=== PATIENT | male | born 1960 | race African-American/Black ===

== ENCOUNTER 2020-12-24 12:18 | Inpatient (IN) ==
[2020-12-24] MEDS ORDERED: ALBUTEROL 2.5 MG/3 ML NEB RESP TX PRN (16:59)
[2020-12-24] MEDS ORDERED: ONDANSETRON 4 MG/2 ML VIAL IV PRN (16:59)
[2020-12-24 17:31] LABS: ABG Base Excess -5.5 MMOL/L (-2.5-2.5); ABG HCO3 17.8 MMOL/L (20-26); ABG Oxygen Saturation 88.3 % (95-100); ABG PCO2 27.5 MM HG (35-48); ABG PH 7.428 (7.35-7.45); ABG PO2 49.7 MM HG (80-95); ABG TCO2 18.6 MMOL/L (23-27)
[2020-12-24] MEDS ORDERED: DIAZEPAM 5 MG TABLET PO PRN (17:43)
[2020-12-24 18:09] LABS: Basophils % 0.2 % (0.0-0.8); Eosinophils # 0.1 10*3/uL (0.0-0.87); Eosinophils % 0.3 % (0.00-10.9); Hemoglobin 10.7 GM/DL (14.0-18.0); Immature Granulocytes % 1.1 %; Immature Granulocytes Absolute 0.23 #; Lymphocytes # 1.7 10*3/uL (1.4-4.0); Lymphocytes % 8.4 % (21.2-54.2); Mean Corpuscular HGB Conc 31.5 GM/DL (32-36); Mean Corpuscular Volume 91.2 FL (87-102); Mean Platelet Volume 9.9 FL (9.6-12.0); Platelet Count 314 T/CUMM (130-400); Red Blood Count 3.73 MC/CUMM (3.8-5.5); Red Cell Distribution Width 14.9 % (9.3-17.3); White Blood Count 20.6 T/CUMM (4-12)
[2020-12-24] MEDS: PANTOPRAZOLE 40 MG VIAL IV SCH (18:11)
[2020-12-24] MEDS: HEPARIN DRIP 25,000 UNITS/500 ML PREMIX IV SCH (18:11)
[2020-12-24 18:24] LABS: PT Patient Result 11.4 SECS (10.5-12.0); Partial Thromboplastin Time 34.2 SECS (23.8-32.1)
[2020-12-24 18:26] LABS: Calcium 8.4 MG/DL (8.5-10.1); Osmolality,Calculated 272.4 MOS/KG (273-304); Potassium 4.3 MMOL/L (3.5-5.1)
[2020-12-24 19:36] LABS: Band Neutrophils 1 % (0-10); Lymphocytes 8 % (20-55); Segmented Neutrophils 85 % (50-85); Total Cells Counted 100
[2020-12-24 19:37] LABS: Acanthocytes Few; Spherocytes Slight
[2020-12-24] MEDS: INSULIN LISPRO 100 UNIT/ML SUBCUT SCH (21:18)
[2020-12-24] MEDS: CLARITHROMYCIN 500 MG TABLET PO SCH (21:19)
[2020-12-24] MEDS: AMOXICILLIN 500 MG CAPSULE PO SCH (21:19)
[2020-12-24] MEDS ORDERED: MORPHINE 2 MG/1 ML SYRINGE IV PRN (22:41)
[2020-12-24] MEDS ORDERED: MORPHINE 2 MG/1 ML SYRINGE ONE (22:43)
[2020-12-24] MEDS: ACETAMINOPHEN 500 MG TABLET PO PRN (23:08)
[2020-12-25 01:32] LABS: PT Patient Result 11.6 SECS (10.5-12.0); Partial Thromboplastin Time 56.7 SECS (23.8-32.1)
[2020-12-25 04:36] LABS: Basophils # 0.1 10*3/uL (0.0-0.2); Basophils % 0.2 % (0.0-0.8); Eosinophils % 0.2 % (0.00-10.9); Hematocrit 27.6 VOL% (42.0-52.0); Hemoglobin 9.4 GM/DL (14.0-18.0); Immature Granulocytes % 1.3 %; Immature Granulocytes Absolute 0.27 #; Lymphocytes # 1.6 10*3/uL (1.4-4.0); Lymphocytes % 7.6 % (21.2-54.2); Mean Corpuscular HGB Conc 34.1 GM/DL (32-36); Mean Corpuscular Volume 85.7 FL (87-102); Mean Platelet Volume 9.9 FL (9.6-12.0); Neutrophils % 80.7 % (38.7-73.9); Platelet Count 305 T/CUMM (130-400); Red Blood Count 3.22 MC/CUMM (3.8-5.5); Red Cell Distribution Width 14.6 % (9.3-17.3); White Blood Count 20.7 T/CUMM (4-12)
[2020-12-25 04:37] LABS: ABG Base Excess -3.7 MMOL/L (-2.5-2.5); ABG HCO3 21.2 MMOL/L (20-26); ABG Oxygen Saturation 93.1 % (95-100); ABG PCO2 32.2 MM HG (35-48); ABG PH 7.407 (7.35-7.45); ABG PO2 63.2 MM HG (80-95); ABG TCO2 18.6 MMOL/L (23-27)
[2020-12-25 04:46] LABS: INR 1.1; PT Patient Result 11.8 SECS (10.5-12.0); Partial Thromboplastin Time 64.8 SECS (23.8-32.1)
[2020-12-25 05:04] LABS: Lymphocytes 5 % (20-55); Platelet Estimate Adequate; Segmented Neutrophils 80 % (50-85); Total Cells Counted 100
[2020-12-25 05:05] LABS: Hypochromasia 1+; Microcytosis Slight
[2020-12-25 05:08] LABS: Calcium 7.8 MG/DL (8.5-10.1); Osmolality,Calculated 267.2 MOS/KG (273-304); Potassium 3.9 MMOL/L (3.5-5.1)
[2020-12-25 05:44] LABS: Albumin 1.5 G/DL (3.4-5.0); Bilirubin,Total 0.7 MG/DL (0.20-1.00); Calcium 8.2 MG/DL (8.5-10.1); Osmolality,Calculated 264.4 MOS/KG (273-304); Potassium 3.9 MMOL/L (3.5-5.1); Total Protein 5.8 G/DL (6.4-8.2)
[2020-12-25] MEDS: INSULIN LISPRO 100 UNIT/ML SUBCUT SCH ×4 (07:16→21:51)
[2020-12-25 07:58] LABS: INR 1.1; PT Patient Result 11.9 SECS (10.5-12.0); Partial Thromboplastin Time 79.7 SECS (23.8-32.1)
[2020-12-25] MEDS: CLARITHROMYCIN 500 MG TABLET PO SCH ×2 (08:16→21:48)
[2020-12-25] MEDS: AMOXICILLIN 500 MG CAPSULE PO SCH ×2 (08:16→21:48)
[2020-12-25] MEDS ORDERED: INFLUENZA VIRUS VACCINE 0.5 ML SYRINGE IM ONE (09:00)
[2020-12-25] MEDS ORDERED: PNEUMOCOCCAL VACCINE (23 VALENT) 0.5 ML VIAL IM ONE (09:00)
[2020-12-25 12:59] LABS: INR 1.1; PT Patient Result 12.1 SECS (10.5-12.0)
[2020-12-25 13:00] LABS: Partial Thromboplastin Time 68.6 SECS (23.8-32.1)
[2020-12-25] MEDS: PANTOPRAZOLE 40 MG VIAL IV SCH (16:26)
[2020-12-25] MEDS: HEPARIN DRIP 25,000 UNITS/500 ML PREMIX IV SCH (17:51)
[2020-12-26 05:54] LABS: PT Patient Result 11.5 SECS (10.5-12.0)
[2020-12-26 06:06] LABS: Partial Thromboplastin Time 56.6 SECS (23.8-32.1)
[2020-12-26 07:42] LABS: Basophils % 0.2 % (0.0-0.8); Eosinophils # 0.1 10*3/uL (0.0-0.87); Eosinophils % 0.3 % (0.00-10.9); Hematocrit 27.6 VOL% (42.0-52.0); Hemoglobin 9.4 GM/DL (14.0-18.0); Immature Granulocytes % 1.2 %; Lymphocytes # 1.4 10*3/uL (1.4-4.0); Lymphocytes % 7.9 % (21.2-54.2); Mean Corpuscular HGB Conc 34.1 GM/DL (32-36); Mean Corpuscular Volume 84.9 FL (87-102); Mean Platelet Volume 10.5 FL (9.6-12.0); Monocytes % 9.4 % (1.7-12.7); Platelet Count 372 T/CUMM (130-400); Red Blood Count 3.25 MC/CUMM (3.8-5.5); Red Cell Distribution Width 14.7 % (9.3-17.3); White Blood Count 17.3 T/CUMM (4-12)
[2020-12-26 07:54] LABS: Calcium 7.8 MG/DL (8.5-10.1); Osmolality,Calculated 263.7 MOS/KG (273-304); Potassium 3.8 MMOL/L (3.5-5.1)
[2020-12-26] MEDS: AMOXICILLIN 500 MG CAPSULE PO SCH ×2 (08:55→21:35)
[2020-12-26] MEDS: CLARITHROMYCIN 500 MG TABLET PO SCH ×2 (08:55→21:35)
[2020-12-26] MEDS: INSULIN LISPRO 100 UNIT/ML SUBCUT SCH ×4 (08:55→21:44)
[2020-12-26] MEDS ORDERED: APIXABAN 5 MG TABLET PO SCH (09:00)
[2020-12-26] MEDS: HEPARIN DRIP 25,000 UNITS/500 ML PREMIX IV SCH ×2 (10:57→17:23)
[2020-12-26 14:02] LABS: Bilirubin,Urine Negative (Negative); Blood, Urine Small mg/dL (Negative); Glucose,Urine (UA) >=500 mg/dL (Negative); Ketones,Urine Negative (Negative); Nitrite,Urine Negative (Negative); Protein,Urine Negative; RBC,Urine 4 /HPF (0-4); Squamous Epithelial Cell,Urine Occasional /HPF (0-10); Urine Appearance CLEAR (Clear); Urine Color Straw (Yellow); Urine Specific Gravity 1.008 (1.001-1.035); Urine Urobilinogen < 2.0 EU/DL (0.2-1.0)
[2020-12-26] MEDS: INSULIN GLARGINE 100 UNIT/ML SUBCUT SCH (17:19)
[2020-12-26] MEDS: PANTOPRAZOLE 40 MG VIAL IV SCH (17:22)
[2020-12-26 20:25] LABS: PT Patient Result 11.2 SECS (10.5-12.0)
[2020-12-26 20:28] LABS: Partial Thromboplastin Time 57.2 SECS (23.8-32.1)
[2020-12-27 05:47] LABS: Basophils # 0.1 10*3/uL (0.0-0.2); Basophils % 0.3 % (0.0-0.8); Eosinophils % 0.1 % (0.00-10.9); Hematocrit 28.5 VOL% (42.0-52.0); Hemoglobin 9.7 GM/DL (14.0-18.0); Immature Granulocytes % 1.2 %; Immature Granulocytes Absolute 0.23 #; Lymphocytes # 0.8 10*3/uL (1.4-4.0); Lymphocytes % 4.2 % (21.2-54.2); Mean Corpuscular Volume 86.9 FL (87-102); Mean Platelet Volume 10.2 FL (9.6-12.0); Monocytes % 2.1 % (1.7-12.7); Neutrophils % 92.1 % (38.7-73.9); Platelet Count 349 T/CUMM (130-400); Red Blood Count 3.28 MC/CUMM (3.8-5.5); Red Cell Distribution Width 14.4 % (9.3-17.3)
[2020-12-27 06:11] LABS: Band Neutrophils 1 % (0-10); Hypochromasia Slight; Lymphocytes 6 % (20-55); Microcytosis Slight; Platelet Estimate Adequate; Segmented Neutrophils 93 % (50-85); Total Cells Counted 100
[2020-12-27 06:13] LABS: Osmolality,Calculated 258.7 MOS/KG (273-304); Potassium 3.5 MMOL/L (3.5-5.1)
[2020-12-27] MEDS ORDERED: DEXTROSE 50% 25 GM/50 ML VIAL IV ONE ×2 (06:56→07:08)
[2020-12-27] MEDS ORDERED: DEXTROSE 50% 25 GM/50 ML VIAL IV PRN (07:13)
[2020-12-27] MEDS: INSULIN LISPRO 100 UNIT/ML SUBCUT SCH ×4 (07:29→20:44)
[2020-12-27] MEDS ORDERED: LACTATED RINGERS 1,000 ML IV SCH (09:00)
[2020-12-27] MEDS: INSULIN GLARGINE 100 UNIT/ML SUBCUT SCH (10:28)
[2020-12-27] MEDS: cefTRIAXone 1,000 MG in SODIUM CHLORIDE 0.9% 100 ML IV SCH (11:02)
[2020-12-27] MEDS ORDERED: MAGNESIUM SULF RIDER 4 GM/100 ML PREMIX IV ONE (12:32)
[2020-12-27] MEDS: HEPARIN DRIP 25,000 UNITS/500 ML PREMIX IV SCH (12:36)
[2020-12-27] MEDS ORDERED: propofoL 200 MG/20 ML VIAL IV ONE (14:25)
[2020-12-27] MEDS ORDERED: LIDOCAINE 2% 5 ML VIAL ONE (14:25)
[2020-12-27] MEDS ORDERED: ETOMIDATE 20 MG/10 ML VIAL IV ONE (14:25)
[2020-12-27] MEDS: AMOXICILLIN 500 MG CAPSULE PO SCH ×2 (16:25→20:43)
[2020-12-27] MEDS: CLARITHROMYCIN 500 MG TABLET PO SCH ×2 (16:25→20:44)
[2020-12-27] MEDS: ACETAMINOPHEN 500 MG TABLET PO PRN (18:19)
[2020-12-27] MEDS: ATORVASTATIN 20 MG TABLET PO SCH (20:44)
[2020-12-27] MEDS: PANTOPRAZOLE 40 MG VIAL IV SCH (20:44)
[2020-12-28 06:02] LABS: Basophils % 0.2 % (0.0-0.8); Eosinophils % 0.3 % (0.00-10.9); Hematocrit 26.8 VOL% (42.0-52.0); Hemoglobin 8.9 GM/DL (14.0-18.0); Immature Granulocytes % 1.3 %; Immature Granulocytes Absolute 0.19 #; Lymphocytes # 1.5 10*3/uL (1.4-4.0); Lymphocytes % 10.3 % (21.2-54.2); Mean Corpuscular HGB Conc 33.2 GM/DL (32-36); Mean Corpuscular Volume 86.2 FL (87-102); Mean Platelet Volume 10.7 FL (9.6-12.0); Monocytes % 10.9 % (1.7-12.7); Platelet Count 358 T/CUMM (130-400); Red Blood Count 3.11 MC/CUMM (3.8-5.5); Red Cell Distribution Width 15.1 % (9.3-17.3); White Blood Count 14.9 T/CUMM (4-12)
[2020-12-28 06:15] LABS: Calcium 7.8 MG/DL (8.5-10.1); Osmolality,Calculated 271.1 MOS/KG (273-304); Potassium 3.1 MMOL/L (3.5-5.1)
[2020-12-28 06:18] LABS: Risk Ratio 5.27; VLDL Cholesterol 30.4 MG/DL
[2020-12-28 06:27] LABS: Band Neutrophils 1 % (0-10); Eosinophils 2 % (0-10); Hypochromasia 1+; Lymphocytes 8 % (20-55); Microcytosis 1+; Platelet Estimate Adequate; Segmented Neutrophils 85 % (50-85); Total Cells Counted 100
[2020-12-28 06:39] LABS: Albumin 1.6 G/DL (3.4-5.0); Bilirubin,Direct 0.17 MG/DL (0.0-0.20); Bilirubin,Indirect 0.8 MG/DL (0.0-1.0); Total Protein 5.9 G/DL (6.4-8.2)
[2020-12-28] MEDS ORDERED: POTASSIUM CHLORIDE 20 MEQ TABLET PO ONE (07:30)
[2020-12-28 08:32] LABS: Ferritin 634.5 ng/mL (26-388)
[2020-12-28 08:45] LABS: Folate 6.58 NG/ML (5.38-24.0)
[2020-12-28] MEDS: PANTOPRAZOLE 40 MG VIAL IV SCH (08:55)
[2020-12-28] MEDS: CLARITHROMYCIN 500 MG TABLET PO SCH ×2 (08:55→20:25)
[2020-12-28] MEDS: AMOXICILLIN 500 MG CAPSULE PO SCH ×2 (08:55→20:25)
[2020-12-28] MEDS: INSULIN GLARGINE 100 UNIT/ML SUBCUT SCH (08:56)
[2020-12-28] MEDS: INSULIN LISPRO 100 UNIT/ML SUBCUT SCH ×4 (08:56→22:13)
[2020-12-28] MEDS: cefTRIAXone 1,000 MG in SODIUM CHLORIDE 0.9% 100 ML IV SCH (09:09)
[2020-12-28] MEDS: HEPARIN DRIP 25,000 UNITS/500 ML PREMIX IV SCH (09:51)
[2020-12-28 13:04] LABS: Hematocrit 27.3 VOL% (42.0-52.0); Hemoglobin 9.3 GM/DL (14.0-18.0)
[2020-12-28] MEDS: FERROUS SULFATE 325 MG TABLET PO SCH (16:31)
[2020-12-28] MEDS: ENOXAPARIN 60 MG/0.6 ML SYRINGE SUBCUT SCH (16:31)
[2020-12-28] MEDS: PANTOPRAZOLE 40 MG TABLET PO SCH (16:31)
[2020-12-28] MEDS: WARFARIN 5 MG TABLET PO SCH (17:23)
[2020-12-28] MEDS: ATORVASTATIN 20 MG TABLET PO SCH (20:26)
[2020-12-28] MEDS ORDERED: ALUM/MAG/SIMETH/LIDO VISC 1:1 30 ML BOTTLE PO PRN (21:32)
[2020-12-29] MEDS: ENOXAPARIN 60 MG/0.6 ML SYRINGE SUBCUT SCH ×2 (05:16→17:04)
[2020-12-29 06:29] LABS: Basophils % 0.1 % (0.0-0.8); Eosinophils % 0.3 % (0.00-10.9); Hematocrit 27.2 VOL% (42.0-52.0); Hemoglobin 9.3 GM/DL (14.0-18.0); Immature Granulocytes % 0.9 %; Immature Granulocytes Absolute 0.12 #; Lymphocytes # 1.5 10*3/uL (1.4-4.0); Lymphocytes % 10.7 % (21.2-54.2); Mean Corpuscular HGB Conc 34.2 GM/DL (32-36); Mean Platelet Volume 9.7 FL (9.6-12.0); Monocytes % 8.1 % (1.7-12.7); Neutrophils % 79.9 % (38.7-73.9); Platelet Count 453 T/CUMM (130-400); Red Cell Distribution Width 15.1 % (9.3-17.3)
[2020-12-29 06:34] LABS: Osmolality,Calculated 266.2 MOS/KG (273-304); Potassium 3.6 MMOL/L (3.5-5.1)
[2020-12-29] MEDS: AMOXICILLIN 500 MG CAPSULE PO SCH ×2 (08:39→21:41)
[2020-12-29] MEDS: PANTOPRAZOLE 40 MG TABLET PO SCH ×2 (08:40→17:04)
[2020-12-29] MEDS: CLARITHROMYCIN 500 MG TABLET PO SCH ×2 (08:40→21:40)
[2020-12-29] MEDS: FERROUS SULFATE 325 MG TABLET PO SCH ×2 (08:40→17:04)
[2020-12-29 08:46] LABS: PT Patient Result 11.3 SECS (10.5-12.0)
[2020-12-29] MEDS: INSULIN LISPRO 100 UNIT/ML SUBCUT SCH ×4 (08:53→22:22)
[2020-12-29] MEDS: INSULIN GLARGINE 100 UNIT/ML SUBCUT SCH (08:53)
[2020-12-29] MEDS: cefTRIAXone 1,000 MG in SODIUM CHLORIDE 0.9% 100 ML IV SCH (11:05)
[2020-12-29] MEDS ORDERED: ALBUTEROL/IPRATROPIUM 3 ML NEB RESP TX PRN (12:47)
[2020-12-29] MEDS: WARFARIN 5 MG TABLET PO SCH (17:04)
[2020-12-29] MEDS: ATORVASTATIN 20 MG TABLET PO SCH (21:41)
[2020-12-30] MEDS: ENOXAPARIN 60 MG/0.6 ML SYRINGE SUBCUT SCH ×2 (04:52→17:54)
[2020-12-30 05:30] LABS: Basophils % 0.3 % (0.0-0.8); Eosinophils % 0.1 % (0.00-10.9); Hematocrit 25.7 VOL% (42.0-52.0); Hemoglobin 8.6 GM/DL (14.0-18.0); Immature Granulocytes % 0.7 %; Lymphocytes # 1.3 10*3/uL (1.4-4.0); Lymphocytes % 8.5 % (21.2-54.2); Mean Corpuscular HGB Conc 33.5 GM/DL (32-36); Mean Corpuscular Volume 87.1 FL (87-102); Mean Platelet Volume 9.4 FL (9.6-12.0); Monocytes % 6.2 % (1.7-12.7); Neutrophils % 84.2 % (38.7-73.9); Platelet Count 492 T/CUMM (130-400); Red Blood Count 2.95 MC/CUMM (3.8-5.5); Red Cell Distribution Width 15.3 % (9.3-17.3); White Blood Count 14.8 T/CUMM (4-12)
[2020-12-30 05:31] LABS: INR 1.2; PT Patient Result 12.9 SECS (10.5-12.0)
[2020-12-30 05:46] LABS: Calcium 8.1 MG/DL (8.5-10.1); Osmolality,Calculated 265.4 MOS/KG (273-304); Potassium 3.5 MMOL/L (3.5-5.1)
[2020-12-30] MEDS: CLARITHROMYCIN 500 MG TABLET PO SCH ×2 (08:35→21:22)
[2020-12-30] MEDS: AMOXICILLIN 500 MG CAPSULE PO SCH ×2 (08:35→21:23)
[2020-12-30] MEDS: FERROUS SULFATE 325 MG TABLET PO SCH ×2 (08:36→17:52)
[2020-12-30] MEDS: INSULIN LISPRO 100 UNIT/ML SUBCUT SCH ×4 (08:36→21:38)
[2020-12-30] MEDS: PANTOPRAZOLE 40 MG TABLET PO SCH ×2 (08:36→17:52)
[2020-12-30] MEDS: INSULIN GLARGINE 100 UNIT/ML SUBCUT SCH (08:40)
[2020-12-30] MEDS ORDERED: WARFARIN 2.5 MG TABLET PO ONE (09:00)
[2020-12-30] MEDS: cefTRIAXone 1,000 MG in SODIUM CHLORIDE 0.9% 100 ML IV SCH (11:22)
[2020-12-30] MEDS: WARFARIN 5 MG TABLET PO SCH (17:53)
[2020-12-30] MEDS: DOCUSATE SODIUM 100 MG CAPSULE PO SCH (21:23)
[2020-12-30] MEDS: ATORVASTATIN 20 MG TABLET PO SCH (21:23)
[2020-12-30] MEDS: ACETAMINOPHEN 500 MG TABLET PO PRN (21:31)
[2020-12-31 02:18] LABS: Basophils # 0.1 10*3/uL (0.0-0.2); Basophils % 0.3 % (0.0-0.8); Eosinophils % 0.1 % (0.00-10.9); Hematocrit 23.9 VOL% (42.0-52.0); Hemoglobin 7.9 GM/DL (14.0-18.0); Immature Granulocytes % 0.6 %; Immature Granulocytes Absolute 0.11 #; Lymphocytes # 1.1 10*3/uL (1.4-4.0); Lymphocytes % 6.2 % (21.2-54.2); Mean Corpuscular HGB Conc 33.1 GM/DL (32-36); Mean Corpuscular Volume 86.3 FL (87-102); Mean Platelet Volume 9.3 FL (9.6-12.0); Monocytes % 3.7 % (1.7-12.7); Neutrophils % 89.1 % (38.7-73.9); Platelet Count 511 T/CUMM (130-400); Red Blood Count 2.77 MC/CUMM (3.8-5.5); Red Cell Distribution Width 15.3 % (9.3-17.3); White Blood Count 18.5 T/CUMM (4-12)
[2020-12-31 02:30] LABS: INR 1.5; PT Patient Result 16.2 SECS (10.5-12.0)
[2020-12-31 02:40] LABS: Calcium 7.6 MG/DL (8.5-10.1); Potassium 3.5 MMOL/L (3.5-5.1)
[2020-12-31] MEDS: ENOXAPARIN 60 MG/0.6 ML SYRINGE SUBCUT SCH ×2 (04:59→16:14)
[2020-12-31] MEDS ORDERED: MAGNESIUM SULF RIDER 2 GM/50 ML PREMIX IV ONE (08:30)
[2020-12-31] MEDS: FERROUS SULFATE 325 MG TABLET PO SCH ×2 (08:42→16:14)
[2020-12-31] MEDS: AMOXICILLIN 500 MG CAPSULE PO SCH ×2 (08:42→21:21)
[2020-12-31] MEDS: DOCUSATE SODIUM 100 MG CAPSULE PO SCH ×2 (08:42→21:21)
[2020-12-31] MEDS: CLARITHROMYCIN 500 MG TABLET PO SCH ×2 (08:42→21:21)
[2020-12-31] MEDS: INSULIN GLARGINE 100 UNIT/ML SUBCUT SCH (08:43)
[2020-12-31] MEDS: INSULIN LISPRO 100 UNIT/ML SUBCUT SCH ×4 (08:43→21:21)
[2020-12-31] MEDS: PANTOPRAZOLE 40 MG TABLET PO SCH ×2 (08:44→16:14)
[2020-12-31] MEDS: POLYETHYLENE GLYCOL POWDER 17 GM PACK PO SCH (08:44)
[2020-12-31] MEDS: cefTRIAXone 1,000 MG in SODIUM CHLORIDE 0.9% 100 ML IV SCH (11:56)
[2020-12-31] MEDS: WARFARIN 5 MG TABLET PO SCH (19:24)
[2020-12-31] MEDS: ATORVASTATIN 20 MG TABLET PO SCH (21:21)
[2021-01-01 06:05] LABS: Basophils % 0.3 % (0.0-0.8); Eosinophils # 0.1 10*3/uL (0.0-0.87); Eosinophils % 0.5 % (0.00-10.9); Hematocrit 24.1 VOL% (42.0-52.0); Immature Granulocytes % 0.9 %; Immature Granulocytes Absolute 0.11 #; Lymphocytes % 15.8 % (21.2-54.2); Mean Corpuscular HGB Conc 33.2 GM/DL (32-36); Mean Corpuscular Volume 86.1 FL (87-102); Mean Platelet Volume 9.2 FL (9.6-12.0); Monocytes % 6.7 % (1.7-12.7); Neutrophils % 75.8 % (38.7-73.9); Platelet Count 593 T/CUMM (130-400); Red Cell Distribution Width 15.7 % (9.3-17.3); White Blood Count 12.7 T/CUMM (4-12)
[2021-01-01] MEDS: ENOXAPARIN 60 MG/0.6 ML SYRINGE SUBCUT SCH (06:10)
[2021-01-01 06:11] LABS: INR 2.5; PT Patient Result 26.8 SECS (10.5-12.0)
[2021-01-01 06:21] LABS: Calcium 8.1 MG/DL (8.5-10.1); Osmolality,Calculated 265.8 MOS/KG (273-304); Potassium 3.7 MMOL/L (3.5-5.1)
[2021-01-01 06:25] LABS: Alanine Aminotransferase 24 U/L (16-61); Albumin 1.8 G/DL (3.4-5.0); Alkaline Phosphatase 353 U/L (45-117); Aspartate Amino Transferase 30 U/L (0-37); Bilirubin,Direct < 0.100 MG/DL (0.0-0.20); Bilirubin,Indirect 1.1 MG/DL (0.0-1.0); Total Protein 6.4 G/DL (6.4-8.2)
[2021-01-01 06:46] LABS: Bilirubin,Urine Negative (Negative); Blood, Urine Negative (Negative); Glucose,Urine (UA) 50 mg/dL (Negative); Ketones,Urine Negative (Negative); Nitrite,Urine Negative (Negative); Protein,Urine Negative; RBC,Urine 3 /HPF (0-4); Urine Appearance CLEAR (Clear); Urine Color Straw (Yellow); Urine Specific Gravity 1.009 (1.001-1.035); Urine Urobilinogen < 2.0 EU/DL (0.2-1.0)
[2021-01-01] MEDS: POLYETHYLENE GLYCOL POWDER 17 GM PACK PO SCH (08:47)
[2021-01-01] MEDS: CLARITHROMYCIN 500 MG TABLET PO SCH ×2 (08:48→20:37)
[2021-01-01] MEDS: AMOXICILLIN 500 MG CAPSULE PO SCH ×2 (08:48→20:36)
[2021-01-01] MEDS: INSULIN LISPRO 100 UNIT/ML SUBCUT SCH ×4 (08:48→20:36)
[2021-01-01] MEDS: FERROUS SULFATE 325 MG TABLET PO SCH ×2 (08:48→16:28)
[2021-01-01] MEDS: INSULIN GLARGINE 100 UNIT/ML SUBCUT SCH (08:48)
[2021-01-01] MEDS: PANTOPRAZOLE 40 MG TABLET PO SCH ×2 (08:48→16:28)
[2021-01-01] MEDS: DOCUSATE SODIUM 100 MG CAPSULE PO SCH ×2 (08:48→20:36)
[2021-01-01] MEDS ORDERED: MAGNESIUM SULF RIDER 2 GM/50 ML PREMIX IV ONE (08:55)
[2021-01-01] MEDS: cefTRIAXone 1,000 MG in SODIUM CHLORIDE 0.9% 100 ML IV SCH (09:13)
[2021-01-01 09:55] LABS: H pylori Specimen source STOOL; Helicobacter pylori Result Not Detected
[2021-01-01] MEDS: WARFARIN 5 MG TABLET PO SCH (17:25)
[2021-01-01] MEDS: ATORVASTATIN 20 MG TABLET PO SCH (20:36)
[2021-01-02 05:06] LABS: Basophils # 0.1 10*3/uL (0.0-0.2); Basophils % 0.3 % (0.0-0.8); Eosinophils % 0.1 % (0.00-10.9); Hematocrit 26.5 VOL% (42.0-52.0); Hemoglobin 8.6 GM/DL (14.0-18.0); Immature Granulocytes % 0.6 %; Immature Granulocytes Absolute 0.09 #; Lymphocytes # 1.3 10*3/uL (1.4-4.0); Lymphocytes % 8.6 % (21.2-54.2); Mean Corpuscular HGB Conc 32.5 GM/DL (32-36); Mean Corpuscular Volume 87.2 FL (87-102); Mean Platelet Volume 9.2 FL (9.6-12.0); Monocytes % 1.7 % (1.7-12.7); Neutrophils % 88.7 % (38.7-73.9); Platelet Count 620 T/CUMM (130-400); Red Blood Count 3.04 MC/CUMM (3.8-5.5); Red Cell Distribution Width 15.7 % (9.3-17.3); White Blood Count 14.6 T/CUMM (4-12)
[2021-01-02 05:31] LABS: Calcium 8.7 MG/DL (8.5-10.1); Osmolality,Calculated 262.5 MOS/KG (273-304); Potassium 3.8 MMOL/L (3.5-5.1)
[2021-01-02] MEDS: INSULIN LISPRO 100 UNIT/ML SUBCUT SCH ×2 (07:45→12:36)
[2021-01-02 08:27] LABS: INR 2.2; PT Patient Result 23.8 SECS (10.5-12.0)
[2021-01-02] MEDS ORDERED: amLODIPine 5 MG TABLET PO SCH (09:00)
[2021-01-02] MEDS: DOCUSATE SODIUM 100 MG CAPSULE PO SCH (09:09)
[2021-01-02] MEDS: PANTOPRAZOLE 40 MG TABLET PO SCH (09:09)
[2021-01-02] MEDS: AMOXICILLIN 500 MG CAPSULE PO SCH (09:09)
[2021-01-02] MEDS: FERROUS SULFATE 325 MG TABLET PO SCH (09:09)
[2021-01-02] MEDS: CLARITHROMYCIN 500 MG TABLET PO SCH (09:09)
[2021-01-02] MEDS: INSULIN GLARGINE 100 UNIT/ML SUBCUT SCH (09:09)
[2021-01-02] MEDS: POLYETHYLENE GLYCOL POWDER 17 GM PACK PO SCH (09:09)
[2021-01-02] MEDS: cefTRIAXone 1,000 MG in SODIUM CHLORIDE 0.9% 100 ML IV SCH (09:10)
[2021-01-02 11:53] VITALS: BP 129/80
== END 2021-01-02 15:48 | disposition home or self-care (01) | DRG 432 ==
LOC: SUATTDRO 15:18 → N.CC 15:18 → N.3E 12-25 17:16
PROVIDERS: ADMIT Internal Medicine; ATTEND Phlebology